=== PATIENT | female | born 1985 | race Caucasian/White ===

== ENCOUNTER 2019-07-10 19:15 | Emergency (ER) | payer MEDICAID, OTHER ==
[~2019-07-10] VITALS: Ht 182.9 cm; Wt 110.2 kg
--- NOTE | 2019-07-10 19:42 | NUR ---
[employer] NET DEVELOPER CONSULTANT IN PT ROOM. PT IS OKAY WITH HER STAYING IN ROOM.
--- NOTE | 2019-07-10 19:45 | NUR ---
REPORT FILED WITH [facility].
[2019-07-10] MEDS ORDERED: ibuprofen tablet 400 MG TABLET PO ONE (20:15)
--- NOTE | 2019-07-10 20:38 | NUR ---
PER SULEMA LEE NO NEED FOR HCG BEFORE CT SCAN.
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
[2019-07-10] MEDS ORDERED: LIDOcaine 1% w/EPI 1:200,000 injection 10mL vial IM ONE (21:20)
[2019-07-10] MEDS ORDERED: HYDROcodone/acetaminophen 5mg/325mg tablet PO ONE (21:20)
--- NOTE | 2019-07-10 21:46 | NUR ---
[place] [employer] AT BEDSIDE. [employer] ALSO AT BEDSIDE STILL.
[2019-07-10] MEDS ORDERED: HYDR-3965 PO (22:16)
[2019-07-10 22:37] VITALS: BP 162/87
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
== END 2019-07-10 23:00 | disposition home or self-care (01) ==
LOC: ER 19:17
DX: S62.390A Other fracture of second metacarpal bone, right hand, initial encounter for closed fracture (principal); R07.89 Other chest pain; M54.5 Low back pain; Z79.899 Other long term (current) drug therapy; Y08.89XA Assault by other specified means, initial encounter; Y93.89 Activity, other specified; Y92.89 Other specified places as the place of occurrence of the external cause; Y99.8 Other external cause status
CPT/HCPCS: 26605; 70450; 73120; 73130; 93005; 99284

== ENCOUNTER 2019-07-25 10:41 | Day surgery (SDC) | payer MEDICAID, OTHER ==
[2019-07-24 11:19] LABS: BASOPHILS # (AUTO) 0.1 X10'3 (0-0.2); BASOPHILS % (AUTO) 0.6 % (0-1); EOSINOPHILS # (AUTO) 0.2 X10'3 (0-0.9); EOSINOPHILS % (AUTO) 2.2 % (0-6); LYMPHOCYTES # (AUTO) 1.7 X10'3 (1.1-4.8); MEAN CORPUSCULAR HEMOGLOBIN 29.7 PG (27.0-31.0); MEAN CORPUSCULAR HGB CONC 33.4 g/dL (33.0-36.5); MEAN CORPUSCULAR VOLUME 88.7 FL (78-98); MEAN PLATELET VOLUME 6.4 FL (7.4-10.4); MONOCYTES # (AUTO) 0.8 X10'3 (0-0.9); MONOCYTES % (AUTO) 9.5 % (2-12); NEUTROPHILS # (AUTO) 6.1 X10'3 (1.8-7.7); NEUTROPHILS % (AUTO) 68.7 % (42-75); PRE OP HEMATOCRIT 43.5 % (35.0-45.0); PRE OP HEMOGLOBIN 14.5 g/dL (12.0-16.0); PRE OP PLATELET COUNT 403 X10'3 (140-440); RED CELL DISTRIBUTION WIDTH 12.8 % (11.5-14.5)
[2019-07-24 11:29] LABS: PRE OP INR 0.9 INR; PRE OP PROTIME 9.9 SECONDS (9.0-12.0)
[2019-07-24 11:34] LABS: ALBUMIN 3.2 G/DL (3.4-5.0); ALBUMIN/GLOBULIN RATIO 0.7 (1.1-1.5); ALKALINE PHOSPHATASE 87 IU/L (46-116); BLOOD UREA NITROGEN 14 MG/DL (7-18); CALCIUM 9.1 MG/DL (8.5-10.1); CHLORIDE 103 MMOL/L (99-107); PRE OP ALT 31 U/L (30-65); PRE OP ANION GAP 6 (8-16); PRE OP AST 16 U/L (10-37); PRE OP BILIRUB, TOTAL 0.3 MG/DL (0.0-1.0); PRE OP GLUCOSE 80 MG/DL (70-104); PRE OP POTASSIUM 3.9 MMOL/L (3.4-5.1); PRE OP SODIUM 136 MMOL/L (135-145); TOTAL CARBON DIOXIDE 27.3 MMOL/L (24-32); TOTAL PROTEIN 8.1 G/DL (6.4-8.2); eGFR > 90 ML/MIN
[2019-07-25] VITALS (7 sets, daily range): BP systolic 114–152; BP diastolic 69–101
[~2019-07-25] VITALS: Ht 182.9 cm; Wt 112.4 kg
[~2019-07-25 10:41] MED LIST: LIDOcaine 0.5% (5mg/ml) 50ml vial ONE; NO HOME MEDS; cefazolin/dext.iso 2gm/100 ML IV ONE; cefazolin/dext.iso 2gm/50ml 50 ML IV ONE; famotidine 20mg tablet PO ONE; ringers solution, lacted 1,000 ML IV SCH
[2019-07-25] MEDS ORDERED: BUPIVAcaine/PF 2.5mg/ml (0.25%) 10ml vial ONE (12:31)
[2019-07-25] MEDS ORDERED: fentaNYL/PF 50MCG/1 ML 2ML syringe ONE ×3 (12:43→13:21)
[2019-07-25] MEDS ORDERED: midazolam 2 mg/2 ml injection ONE ×2 (12:44→12:57)
[2019-07-25] MEDS ORDERED: ketamine 50mg/5ml syringe ONE (13:08)
[2019-07-25] MEDS ORDERED: ringers solution, lacted 1,000 ML IV SCH (13:17)
[2019-07-25] MEDS ORDERED: proCHLORperazine 10 MG/2 ml inj IV PRN (13:20)
[2019-07-25] MEDS ORDERED: morphine 4 MG/ML inj SYRINge IV PRN ×2 (13:20)
[2019-07-25] MEDS ORDERED: meperidine/PF 25mg/ml syringe IV PRN ×2 (13:20)
[2019-07-25] MEDS ORDERED: ondansetron/PF 4mg/2ml inj IV PRN (13:20)
[2019-07-25] MEDS ORDERED: propofol inj 20 ML IV ONE ×2 (13:21→13:39)
--- NOTE | 2019-07-25 13:41 | NUR ---
Received from OR via [facility], accompanied by Anesthesiologist GRETA and report given by Anesthesiolgist. PATIENT WITH 20G PIV IN LEFT UE RUNNING LR AT 100. RIGHT WRIST DRESSING IS CDI. + CAP REFLL AND MOVEMENT OF FINGERS. VSS. Addendum: 07/25/19 at 1350 by Hoang Kennedy RN, RN Amended: Links added.
[2019-07-25] MEDS: meperidine/PF 25mg/ml syringe IV PRN ×2 (14:07→14:24)
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
== END 2019-07-25 14:47 | disposition home or self-care (01) ==
LOC: PAS 10:41
PROVIDERS: ATTEND Orthopaedic Surgery Hand Surgery
DX: S62.330A Displaced fracture of neck of second metacarpal bone, right hand, initial encounter for closed fracture (principal); F17.290 Nicotine dependence, other tobacco product, uncomplicated; Z98.890 Other specified postprocedural states; Z86.14 Personal history of Methicillin resistant Staphylococcus aureus infection; Z72.89 Other problems related to lifestyle; Z79.01 Long term (current) use of anticoagulants; X58.XXXA Exposure to other specified factors, initial encounter; Y93.89 Activity, other specified; Y92.89 Other specified places as the place of occurrence of the external cause; Y99.8 Other external cause status
CPT/HCPCS: 26615; 36415; 80053; 85025; 85610; 85730; 93005; A6222; C1713; J0780; J2001; J2175; J2250; J2704; J3010; J3490; A4215; A6449; J7120

== ENCOUNTER 2019-09-14 23:19 | Emergency (ER) | payer MEDICAID, OTHER ==
[~2019-09-14] VITALS: Ht 182.9 cm; Wt 100.0 kg
[~2019-09-14 23:19] MED LIST changes: -LIDOcaine 0.5% (5mg/ml) 50ml vial ONE; -cefazolin/dext.iso 2gm/100 ML IV ONE; -cefazolin/dext.iso 2gm/50ml 50 ML IV ONE; -famotidine 20mg tablet PO ONE; -ringers solution, lacted 1,000 ML IV SCH
[2019-09-14] MEDS ORDERED: normal saline 1000ML IV soln IV ONE (23:35)
[2019-09-14] MEDS ORDERED: CefTRIAXone 2gm/D5W 50ml 50 ML IV ONE (23:35)
[2019-09-15 00:06] LABS: WHITE BLOOD COUNT 4.6 X10'3 (4.5-11.0)
[2019-09-15 00:07] LABS: BASOPHILS % (AUTO) 0.2 % (0-1); EOSINOPHILS % (AUTO) 0.1 % (0-6); HEMATOCRIT 40.4 % (35.0-45.0); HEMOGLOBIN 14.1 g/dl (12.0-16.0); LYMPHOCYTES # (AUTO) 0.3 X10'3 (1.1-4.8); LYMPHOCYTES % (AUTO) 5.9 % (21-51); MEAN CORPUSCULAR HEMOGLOBIN 29.8 PG (27.0-31.0); MEAN CORPUSCULAR VOLUME 85.3 FL (78-98); MEAN PLATELET VOLUME 6.5 FL (7.4-10.4); MONOCYTES % (AUTO) 0.9 % (2-12); NEUTROPHILS # (AUTO) 4.2 X10'3 (1.8-7.7); NEUTROPHILS % (AUTO) 92.9 % (42-75); PLATELET COUNT 151 X10'3 (140-440); RED BLOOD COUNT 4.73 X10'6 (4.20-5.60)
[2019-09-15] MEDS ORDERED: fentaNYL/PF 50MCG/1 ML 2ML syringe IV ONE ×2 (00:20→01:20)
[2019-09-15 00:22] LABS: PARTIAL THROMBOPLASTIN TIME 38 SECONDS (22-32)
[2019-09-15 00:26] LABS: ALANINE AMINOTRANSFERASE 65 U/L (12-78); ALBUMIN 2.6 G/DL (3.4-5.0); ALBUMIN/GLOBULIN RATIO 0.7 (1.1-1.5); ALKALINE PHOSPHATASE 132 IU/L (46-116); ANION GAP 13 (8-16); ASPARTATE AMINO TRANSFERASE 31 U/L (10-37); BILIRUBIN,TOTAL 0.5 MG/DL (0.1-1.0); BLOOD UREA NITROGEN 10 MG/DL (7-18); CALCIUM 8.3 MG/DL (8.5-10.1); CHLORIDE 99 MMOL/L (99-107); CREATININE 0.91 MG/DL (0.40-0.90); GLUCOSE 100 MG/DL (70-104); POTASSIUM 3.3 MMOL/L (3.5-5.1); SODIUM 133 MMOL/L (135-145); TOTAL CARBON DIOXIDE 21.1 MMOL/L (24-32); TOTAL PROTEIN 6.5 G/DL (6.4-8.2); eGFR 72 ML/MIN
[2019-09-15] MEDS ORDERED: metroNIDAZOLE-Flagyl 500mg/NS 100 ML IV STA (00:38)
[2019-09-15 00:49] LABS: BETA HCG,QUANTITATIVE 9603 mIU/ml; MAGNESIUM 1.1 MG/DL (1.5-2.4)
--- NOTE | 2019-09-15 01:08 | NUR ---
Ultrasound in room
--- NOTE | 2019-09-15 02:42 | NUR ---
Pt delivered product of conception at approx. 0215. Placenta did not deliver. notified. MD tied off umbilicus and fetus from mother. Fetus placed in lidded container and [facility]. Mild bleeding from the vagina. MD massaged uterus for approx 10 min. EMS transfered pt to [facility] for transfer.
[2019-09-15 02:52] VITALS: BP 123/62
== END 2019-09-15 02:59 | disposition short-term general hospital (02) ==
LOC: ER 23:20
DX: O36.4XX0 Maternal care for intrauterine death, not applicable or unspecified (principal); O98.812 Other maternal infectious and parasitic diseases complicating pregnancy, second trimester; A41.9 Sepsis, unspecified organism; R65.21 Severe sepsis with septic shock; Z3A.14 14 weeks gestation of pregnancy; Z98.82 Breast implant status
CPT/HCPCS: 36415; 71045; 76805; 80053; 83605; 83735; 84145; 84702; 85025; 85610; 85730; 87040; 87077; 87186; 93005; 96365; 96367; 96375; 96376; 99285; J0696; J3010; J3490; J7030

== ENCOUNTER 2021-01-08 02:10 | Emergency (ER) | payer MEDICAID ==
[~2021-01-08] VITALS: Ht 182.9 cm; Wt 90.9 kg
--- NOTE | 2021-01-08 03:48 | NUR ---
pt asleep at this time.we will monitor.
[2021-01-08] MEDS ORDERED: CEPH250T PO (05:47)
[2021-01-08 08:15] VITALS: BP 119/80
--- NOTE | 2021-01-08 08:44 | NUR ---
VASCULAR ASSESSMENT UNDERWAY
== END 2021-01-08 09:12 | disposition home or self-care (01) ==
LOC: ER 02:10
DX: L03.116 Cellulitis of left lower limb (principal); F15.90 Other stimulant use, unspecified, uncomplicated; Z98.890 Other specified postprocedural states; Z79.899 Other long term (current) drug therapy
CPT/HCPCS: 93971; 99285

== ENCOUNTER → 2021-04-06 | Emergency (ER) | payer MEDICAID ==
[~2021-04-06] VITALS: Ht 182.9 cm; Wt 109.0 kg
[2021-04-06 14:57] VITALS: BP 157/108
== END | disposition left against medical advice (07) ==
LOC: ER 14:32
DX: M79.671 Pain in right foot (principal); Z53.21 Procedure and treatment not carried out due to patient leaving prior to being seen by health care provider

== ENCOUNTER → 2023-08-04 | Emergency (ER) | payer MEDICAID ==
[~2023-08-04] VITALS: Ht 182.9 cm; Wt 90.9 kg
[~2023-08-04] MED LIST changes: +CEFD300C3 PO; +PRED20TA PO; +dexamethasone sod phosphate 10mg/ml inj IM STA
[2023-08-04 13:31] VITALS: BP 132/86; PULSE 88; RESP 17; TEMP 98; O2SAT 98
== END | disposition home or self-care (01) ==
LOC: ER 11:57
DX: J03.90 Acute tonsillitis, unspecified (principal)
CPT/HCPCS: 96372; 99283; J1100